=== PATIENT | female | born 1945 | race Caucasian/White ===

== ENCOUNTER 2016-12-03 11:51 | Emergency (ER) | payer OTHER, BC ==
--- NOTE | 2016-12-03 14:31 | ED NURSING NOTES ---
Clinical Report - Nurses [facility] [address] [place] [address] 12/03/2016 11:57 Patient: ROBBIE HERNANDEZ TRIAGE Triage time 13:Dec 03 2016. Acuity: LEVEL 5. Chief Complaint: NOSEBLEED. Alert. No acute distress. SEPSIS SCREEN: Sepsis Screen. Negative (no infection suspected/documented). --13:37 Prosper Farnsworth R.N. 13:31 12/03/16. BP: 132/81. HR: 66. RR: 16. O2 saturation: 97% on room air. Temp: 97.5 F. Pain level now: 0/10. --13:37 Prosper Farnsworth R.N. Weight: 68 kg stated. Height/Length: 62 inches Per Patient. BMI: 27.4. --13:30 Prosper Farnsworth R.N. Allergies Hay fever. --13:42 Prosper Farnsworth R.N. The following entry was struck by Prosper Farnsworth R.N., 13:42 (12/03/16) Reason - wrong value. <<STRICKEN ENTRY-- No Known Drug Allergy. --13:32 Prosper Farnsworth R.N. --END STRIKE>>. History Arrived by private vehicle. Historian: patient. Onset. (3 weeks ago.). ( Pt has been going to the [facility] to receive silver nitrate twice. There is a small cut in her upper nose that has been cauterized twice.). No fever, ear drainage, sore throat or sinus pain. 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 PAST MEDICAL HX: Has had prior nosebleeds (x1) (a few years ago). Immunizations: up-to-date. SURGERY HX: Cataract surgery on the right and left eye has been performed once (5 weeks ago). SOCIAL HX: Never smoker. Occasional alcohol use. No drug use. No infectious disease exposure. ABUSE ASSESSMENT: No report of abuse. FALL RISK ASSESSMENT: Fall risk assessment completed. No fall risk identified. NUTRITIONAL RISK ASSESSMENT: The nutritional risk assessment revealed no deficiencies. FUNCTIONAL ASSESSMENT: Functional assessment: no impairments noted. LEARNING NEEDS ASSESSMENT: The learning needs assessment revealed no barriers. SKIN INTEGRITY ASSESSMENT: Skin integrity risk assessment completed. No skin integrity risk identified. --13:37 Prosper Farnsworth R.N. ( Pt reports the nosebleed has been on and off for the last 3 weeks, active bleeding from the L nare this morning has since stopped since she came to the ED this morning.). --13:39 Prosper Farnsworth R.N. PROBLEMS: Fibromyalgia. --13:33 Prosper Farnsworth R.N. Interventions ID band on patient. To treatment room. --13:37 Prosper Farnsworth R.N. PHYSICAL ASSESSMENT Ambulatory to room. GENERAL / NEURO / PSYCH: Alert. Appears in no acute distress. HEENT: No facial asymmetry noted. Pupils equal, round and reactive to light. Nares within normal limits. No active nasal bleeding or dried nasal blood. RESPIRATORY: Respirations not labored. CVS: Capillary refill less than 2 seconds. SKIN: Skin is warm and dry. --13:37 Prosper Farnsworth R.N. NURSING PROGRESS NOTES The plan of care for this patient has been created. Monitoring of patient in place. Head of bed elevated. Reassurance given. Call light placed in reach. Side rails up x 1. Bed placed in lowest position. Patient ready for evaluation- chart flagged and ED physician notified. --13:38 Prosper Farnsworth R.N. 14:31 12/03/2016 LET Topical Topical Solution 1 application. Placed on a cotton ball. Allergies verified and confirmed 5 rights. --14:31 Prosper Farnsworth R.N. DISPOSITION / DISCHARGE 14:32 12/03/16. BP: 139/78. HR: 60. RR: 16. O2 saturation: 99% on room air. Temp: 97.5 F. Pain level now: 0/10. --14:33 Prosper Farnsworth R.N. Condition at departure: improved and stable. The goals identified in the patient's plan of care were met. No learning barriers present. Discharge instructions provided and reviewed with the patient. Treatments reviewed (Pt instructed to apply Vaseline to her septum PRN and to use Afrin daily for the next 48 hrs.). Patient verbalized understanding. Written instructions provided in Khmer. The patient was discharged by the physician. She was discharged home. She left the Emergency Department ambulatory and via private vehicle. Patient driving. ( Pt dc'd in stable condition, ambulatory, verbalized understanding of DC instructions. LET cottonball applied to L nare/septum prior to DC as ordered.). --14:43 Prosper Farnsworth R.N. Departure time: 14:36 Dec 03 2016. --14:43 Prosper Farnsworth R.N. Locked/Released at 12/03/2016 14:44 by Prosper Farnsworth R.N.
--- NOTE | 2016-12-03 14:31 | ED CLINICAL REPORT ---
Clinical Report - Physicians/Mid Levels [facility] [address] [place] [address] 12/03/2016 11:57 Patient: ROBBIE HERNANDEZ Time Seen: 13:16. Arrived- By private vehicle. Historian- patient. HISTORY OF PRESENT ILLNESS Chief Complaint: NOSEBLEED. Since several days ago and is now gone. Location- left nare. The patient has had epistaxis. No complaint of foreign body in the nare, nasal discharge or congestion, recent nasal injury or fainting episodes. No dizziness, sore throat or sinus pressure. Similar symptoms previously: Recent medical care: ( PT states she is from [place], and has a doctor there, but is staying at her place on [facility]. right now. She states her nosebleeds have been intermittent.). Not recently seen/assessed. REVIEW OF SYSTEMS No fever, chills, excessive bruising, bleeding from gums or headache. No visual disturbance, cough, difficulty breathing, chest pain or nausea. No vomiting, diarrhea, abdominal pain, black stools or difficulty with urination. No skin rash, bloody stools or joint pain. All systems otherwise negative, except as recorded above. PAST HISTORY Problems: Fibromyalgia. Prior Nosebleeds. Additional Surgeries: Cataract Surgery. Allergies: Hay fever. SOCIAL HISTORY Never smoker. Occasional alcohol use. No drug use. ADDITIONAL NOTES The nursing notes have been reviewed. PHYSICAL EXAM Vital Signs: 12/03/2016 13:31 BP: 132/81. HR: 66. RR: 16. O2 saturation: 97%. Temp: 97.5 F. Pain level now: 0/10. Have been reviewed. Appearance: Alert. No acute distress. Eyes: Eyes normal inspection. ENT: Ears normal. Nose: Mild left-nare mucosal inflammation (PT has a very small septal erosion, which is likely the source of the bleeding, when it does occur.). No active bleeding, dried blood or fresh clots. Throat: Pharynx normal. Neck: Normal inspection. Neck supple. CVS: Normal heart rate and rhythm. Heart sounds normal. Respiratory: No respiratory distress. Breath sounds normal. Back: Normal inspection. Skin: Skin warm and dry. Normal skin color. No rash. Normal skin turgor. Extremities: Extremities exhibit normal ROM. No lower extremity edema. Neuro: Oriented X 3. No motor deficit. No sensory deficit. LABS, X-RAYS, AND EKG Pulse Oximetry: 12/03/2016 13:31 O2 saturation: 97%. (FIO2 - room air). Interpretation: normal. PROGRESS AND PROCEDURES Course of Care: I did d/w pt options for management, including cautery with silver nitrate, packing, or vasoconstrictors. Pt opted for the latter, as she was not currently bleeding. We have discussed what to do, should the bleeding recur (pt was given nose clamps), and indications for return. Patient counseled in person regarding the patient's stable condition, diagnosis and need for follow-up. Concerns were addressed. Old medical records reviewed. Disposition: Discharged. Condition: stable. CLINICAL IMPRESSION Acute anterior, transient epistaxis INSTRUCTIONS Drink plenty of fluids. (Please use Afrin daily for the next 48 hours. You may soak a cottonball with it and put that in your left nostril for 1-2 hours, if you prefer to keep the medicine near the area of bleeding only. A couple of times per day (1-2 hours after any Afrin application), it is advisable to gently apply a bead of Vaseline, to keep the mucus membranes moist and pliable, and prevent recurrence of bleeding. If bleeding does recur, hold pressure manually or with the nose clamps for 10 minutes solid. You may also put the Afrin cottonball in and put the nose clamps over that. If this does not stop the bleeding, please come to the emergency dept.). Warnings: GENERAL WARNINGS: Return or contact your physician immediately if your condition worsens or changes unexpectedly, if not improving as expected, or if other problems arise. Understanding of the discharge instructions verbalized by patient. Follow-up with: Garrick Smith MD, ENT, , [facility] [address]; Delfino Adams MD, ENT, , [facility], [facility] [address]; Morgan Brooks MD, ENT, , [facility], [address] [place] [address], [phone]; Garrick Dooley MD, ENT, , [facility], [address] [place] [address], [phone] Follow up. Call for the next available appointment. (Electronically signed by Ching De La Paz MD 12/12/2016 21:46)
--- NOTE | 2016-12-03 14:31 | ED NURSING NOTES ---
Clinical Report - Nurses [facility] [address] [place] [address] 12/03/2016 11:57 Patient: ROBBIE HERNANDEZ TRIAGE Triage time 13:Dec 03 2016. Acuity: LEVEL 5. Chief Complaint: NOSEBLEED. Alert. No acute distress. SEPSIS SCREEN: Sepsis Screen. Negative (no infection suspected/documented). --13:37 Prosper Farnsworth R.N. 13:31 12/03/16. BP: 132/81. HR: 66. RR: 16. O2 saturation: 97% on room air. Temp: 97.5 F. Pain level now: 0/10. --13:37 Prosper Farnsworth R.N. Weight: 68 kg stated. Height/Length: 62 inches Per Patient. BMI: 27.4. --13:30 Prosper Farnsworth R.N. Allergies Hay fever. --13:42 Prosper Farnsworth R.N. The following entry was struck by Prosper Farnsworth R.N., 13:42 (12/03/16) Reason - wrong value. <<STRICKEN ENTRY-- No Known Drug Allergy. --13:32 Prosper Farnsworth R.N. --END STRIKE>>. History Arrived by private vehicle. Historian: patient. Onset. (3 weeks ago.). ( Pt has been going to the [facility] to receive silver nitrate twice. There is a small cut in her upper nose that has been cauterized twice.). No fever, ear drainage, sore throat or sinus pain. 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 PAST MEDICAL HX: Has had prior nosebleeds (x1) (a few years ago). Immunizations: up-to-date. SURGERY HX: Cataract surgery on the right and left eye has been performed once (5 weeks ago). SOCIAL HX: Never smoker. Occasional alcohol use. No drug use. No infectious disease exposure. ABUSE ASSESSMENT: No report of abuse. FALL RISK ASSESSMENT: Fall risk assessment completed. No fall risk identified. NUTRITIONAL RISK ASSESSMENT: The nutritional risk assessment revealed no deficiencies. FUNCTIONAL ASSESSMENT: Functional assessment: no impairments noted. LEARNING NEEDS ASSESSMENT: The learning needs assessment revealed no barriers. SKIN INTEGRITY ASSESSMENT: Skin integrity risk assessment completed. No skin integrity risk identified. --13:37 Prosper Farnsworth R.N. ( Pt reports the nosebleed has been on and off for the last 3 weeks, active bleeding from the L nare this morning has since stopped since she came to the ED this morning.). --13:39 Prosper Farnsworth R.N. PROBLEMS: Fibromyalgia. --13:33 Prosper Farnsworth R.N. Interventions ID band on patient. To treatment room. --13:37 Prosper Farnsworth R.N. PHYSICAL ASSESSMENT Ambulatory to room. GENERAL / NEURO / PSYCH: Alert. Appears in no acute distress. HEENT: No facial asymmetry noted. Pupils equal, round and reactive to light. Nares within normal limits. No active nasal bleeding or dried nasal blood. RESPIRATORY: Respirations not labored. CVS: Capillary refill less than 2 seconds. SKIN: Skin is warm and dry. --13:37 Prosper Farnsworth R.N. NURSING PROGRESS NOTES The plan of care for this patient has been created. Monitoring of patient in place. Head of bed elevated. Reassurance given. Call light placed in reach. Side rails up x 1. Bed placed in lowest position. Patient ready for evaluation- chart flagged and ED physician notified. --13:38 Prosper Farnsworth R.N. 14:31 12/03/2016 LET Topical Topical Solution 1 application. Placed on a cotton ball. Allergies verified and confirmed 5 rights. --14:31 Prosper Farnsworth R.N. DISPOSITION / DISCHARGE 14:32 12/03/16. BP: 139/78. HR: 60. RR: 16. O2 saturation: 99% on room air. Temp: 97.5 F. Pain level now: 0/10. --14:33 Prosper Farnsworth R.N. Condition at departure: improved and stable. The goals identified in the patient's plan of care were met. No learning barriers present. Discharge instructions provided and reviewed with the patient. Treatments reviewed (Pt instructed to apply Vaseline to her septum PRN and to use Afrin daily for the next 48 hrs.). Patient verbalized understanding. Written instructions provided in Setswana. The patient was discharged by the physician. She was discharged home. She left the Emergency Department ambulatory and via private vehicle. Patient driving. ( Pt dc'd in stable condition, ambulatory, verbalized understanding of DC instructions. LET cottonball applied to L nare/septum prior to DC as ordered.). --14:43 Prosper Farnsworth R.N. Departure time: 14:36 Dec 03 2016. --14:43 Prosper Farnsworth R.N. Locked/Released at 12/03/2016 14:44 by Prosper Farnsworth R.N.
--- NOTE | 2016-12-03 14:31 | ED CLINICAL REPORT ---
Clinical Report - Physicians/Mid Levels [facility] [address] [place] [address] 12/03/2016 11:57 Patient: ROBBIE HERNANDEZ Time Seen: 13:16. Arrived- By private vehicle. Historian- patient. HISTORY OF PRESENT ILLNESS Chief Complaint: NOSEBLEED. Since several days ago and is now gone. Location- left nare. The patient has had epistaxis. No complaint of foreign body in the nare, nasal discharge or congestion, recent nasal injury or fainting episodes. No dizziness, sore throat or sinus pressure. Similar symptoms previously: Recent medical care: ( PT states she is from [place], and has a doctor there, but is staying at her place on [facility]. right now. She states her nosebleeds have been intermittent.). Not recently seen/assessed. REVIEW OF SYSTEMS No fever, chills, excessive bruising, bleeding from gums or headache. No visual disturbance, cough, difficulty breathing, chest pain or nausea. No vomiting, diarrhea, abdominal pain, black stools or difficulty with urination. No skin rash, bloody stools or joint pain. All systems otherwise negative, except as recorded above. PAST HISTORY Problems: Fibromyalgia. Prior Nosebleeds. Additional Surgeries: Cataract Surgery. Allergies: Hay fever. SOCIAL HISTORY Never smoker. Occasional alcohol use. No drug use. ADDITIONAL NOTES The nursing notes have been reviewed. PHYSICAL EXAM Vital Signs: 12/03/2016 13:31 BP: 132/81. HR: 66. RR: 16. O2 saturation: 97%. Temp: 97.5 F. Pain level now: 0/10. Have been reviewed. Appearance: Alert. No acute distress. Eyes: Eyes normal inspection. ENT: Ears normal. Nose: Mild left-nare mucosal inflammation (PT has a very small septal erosion, which is likely the source of the bleeding, when it does occur.). No active bleeding, dried blood or fresh clots. Throat: Pharynx normal. Neck: Normal inspection. Neck supple. CVS: Normal heart rate and rhythm. Heart sounds normal. Respiratory: No respiratory distress. Breath sounds normal. Back: Normal inspection. Skin: Skin warm and dry. Normal skin color. No rash. Normal skin turgor. Extremities: Extremities exhibit normal ROM. No lower extremity edema. Neuro: Oriented X 3. No motor deficit. No sensory deficit. LABS, X-RAYS, AND EKG Pulse Oximetry: 12/03/2016 13:31 O2 saturation: 97%. (FIO2 - room air). Interpretation: normal. PROGRESS AND PROCEDURES Course of Care: I did d/w pt options for management, including cautery with silver nitrate, packing, or vasoconstrictors. Pt opted for the latter, as she was not currently bleeding. We have discussed what to do, should the bleeding recur (pt was given nose clamps), and indications for return. Patient counseled in person regarding the patient's stable condition, diagnosis and need for follow-up. Concerns were addressed. Old medical records reviewed. Disposition: Discharged. Condition: stable. CLINICAL IMPRESSION Acute anterior, transient epistaxis INSTRUCTIONS Drink plenty of fluids. (Please use Afrin daily for the next 48 hours. You may soak a cottonball with it and put that in your left nostril for 1-2 hours, if you prefer to keep the medicine near the area of bleeding only. A couple of times per day (1-2 hours after any Afrin application), it is advisable to gently apply a bead of Vaseline, to keep the mucus membranes moist and pliable, and prevent recurrence of bleeding. If bleeding does recur, hold pressure manually or with the nose clamps for 10 minutes solid. You may also put the Afrin cottonball in and put the nose clamps over that. If this does not stop the bleeding, please come to the emergency dept.). Warnings: GENERAL WARNINGS: Return or contact your physician immediately if your condition worsens or changes unexpectedly, if not improving as expected, or if other problems arise. Understanding of the discharge instructions verbalized by patient. Follow-up with: Garrick Smith MD, ENT, , [facility] [address]; Delfino Adams MD, ENT, , [facility], [facility] [address]; Morgan Brooks MD, ENT, , [facility], [address] [place] [address], [phone]; Garrick Dooley MD, ENT, , [facility], [address] [place] [address], [phone] Follow up. Call for the next available appointment. (Electronically signed by Ching De La Paz MD 12/12/2016 21:46)
--- NOTE | 2016-12-12 21:47 | ED ORDER SUMMARY ---
..... Patient: ROBBIE HERNANDEZ OrderSheet [facility] VisitID: [id number] [address] [place] [address] 71y, F Registration Date/Time: 12/03/2016 ORDER SHEET Weight: 68.0 kg (stated) Allergies: Hay fever GENERAL ORDERS: MEDICATION ORDERS: LET Topical 1 application (cottonball to L nare) (14:31 12/03/2016 Mak RUIZ) (14:31 Jammie VickersNHoracio) IV FLUIDS: ORDER SHEET NOTES: [Electronically signed by Prosper Farnsworth R.N. (14:44 12/03/2016)] [Electronically signed by Ching De La Paz MD (21:46 12/12/2016)] [Electronically locked/signed by Prosper Farnsworth R.N. (14:44 12/03/2016)]
--- NOTE | 2016-12-12 21:47 | ED DISCHARGE INSTRUCTIONS ---
Patient: ROBBIE HERNANDEZ General Instructions [facility] VisitID: [id number] [address] [place] [address] 71y, F Registration Date/Time: 12/03/2016 Acute anterior, transient epistaxis INSTRUCTIONS Drink plenty of fluids. (Please use Afrin daily for the next 48 hours. You may soak a cottonball with it and put that in your left nostril for 1-2 hours, if you prefer to keep the medicine near the area of bleeding only. A couple of times per day (1-2 hours after any Afrin application), it is advisable to gently apply a bead of Vaseline, to keep the mucus membranes moist and pliable, and prevent recurrence of bleeding. If bleeding does recur, hold pressure manually or with the nose clamps for 10 minutes solid. You may also put the Afrin cottonball in and put the nose clamps over that. If this does not stop the bleeding, please come to the emergency dept.). Warnings: GENERAL WARNINGS: Return or contact your physician immediately if your condition worsens or changes unexpectedly, if not improving as expected, or if other problems arise. Understanding of the discharge instructions verbalized by patient. Follow-up with: Garrick Smith MD, ENT, , [facility] [place] [address]; Delfino Adams MD, ENT, , [place] [address]; Morgan Brooks MD, ENT, , [place] [address]; Garrick Dooley MD, ENT, , [place] [address] Follow up. Call for the next available appointment. ADDITIONAL INFORMATION Nosebleed [Adult] Bleeding from the nose most commonly occurs due to injury or drying and cracking of the inner lining of the nose. This can occur during a "common cold," "hay fever" attack, a very hot day, or from dry air in the winter. High blood pressure and hardening of the arteries (atherosclerosis) may also cause nosebleeds. If the bleeding site is found, it may be treated with a chemical or heat or electricity to cause a blood clot to form (cauterized). If the bleeding continues after cautery or if the bleeding site cannot be found, a packing may be placed in your nose to apply pressure and stop the bleeding. The packing may be made of gauze or sponge. A small balloon catheter is sometimes used. These need to be removed by your doctor. Some types of packing dissolve on their own. Home Care: If a packing was put in your nose, unless told otherwise, do not pull on it or try to remove it yourself. You will be given an appointment to have it removed. You may also have been given antibiotics to prevent a sinus infection. If so, complete all the medicine. Do not blow your nose for 12 hours after the bleeding stops. This will allow a strong blood clot to form. Do not pick your nose. This may restart bleeding. Avoid alcohol and hot liquids for the next two days. Alcohol or hot liquids in your mouth can dilate blood vessels in your nose and cause bleeding to start again. Do not take ibuprofen (Advil, Motrin), naprosyn (Aleve) or aspirin-containing medicines since these thin the blood and may promote nose bleeding. You may take Tylenol (acetaminophen) for pain, unless another pain medicine was prescribed. If the bleeding starts again, sit up and lean forward to prevent swallowing blood. Pinch your nose tightly for exactly 5 minutes (watch the clock). If bleeding is not controlled, continue to pinch and call your doctor or return to this facility. If high blood pressure was a cause for your nosebleed, have your blood pressure checked again tomorrow. If you have a "cold" or "hay fever" or dry nasal membranes, lubricate the nasal passages by applying a small amount of Vaseline inside the nose with a Q-tip twice a day (morning and night). Avoid overheating your home, which can dry the air and worsen your condition. Follow Up with your doctor as advised for packing removal. Nasal packing should be rechecked or removed within 2-3 days. Get Prompt Medical Attention if any of the following occur: Another nosebleed that you cannot control Dizziness, weakness or fainting Fever of 100.4F (38C) or higher, or as directed by your healthcare provider Headache Sinus or facial pain Shortness of breath or trouble breathing You have been given the following additional information: Epistaxis (Adult) (Electronically signed by Ching De La Paz MD 12/12/2016 21:46)
--- NOTE | 2016-12-12 21:47 | ED DISCHARGE INSTRUCTIONS ---
Patient: ROBBIE HERNANDEZ General Instructions [facility] VisitID: [id number] [address] [place] [address] 71y, F Registration Date/Time: 12/03/2016 Acute anterior, transient epistaxis INSTRUCTIONS Drink plenty of fluids. (Please use Afrin daily for the next 48 hours. You may soak a cottonball with it and put that in your left nostril for 1-2 hours, if you prefer to keep the medicine near the area of bleeding only. A couple of times per day (1-2 hours after any Afrin application), it is advisable to gently apply a bead of Vaseline, to keep the mucus membranes moist and pliable, and prevent recurrence of bleeding. If bleeding does recur, hold pressure manually or with the nose clamps for 10 minutes solid. You may also put the Afrin cottonball in and put the nose clamps over that. If this does not stop the bleeding, please come to the emergency dept.). Warnings: GENERAL WARNINGS: Return or contact your physician immediately if your condition worsens or changes unexpectedly, if not improving as expected, or if other problems arise. Understanding of the discharge instructions verbalized by patient. Follow-up with: Garrick Smith MD, E[facility], , [facility] [place] [address]; Delfino Adams MD, ENT, , [place] [address]; Morgan Brooks MD, ENT, , [place] [address]; Garrick Dooley MD, ENT, , [place] [address] Follow up. Call for the next available appointment. ADDITIONAL INFORMATION Nosebleed [Adult] Bleeding from the nose most commonly occurs due to injury or drying and cracking of the inner lining of the nose. This can occur during a "common cold," "hay fever" attack, a very hot day, or from dry air in the winter. High blood pressure and hardening of the arteries (atherosclerosis) may also cause nosebleeds. If the bleeding site is found, it may be treated with a chemical or heat or electricity to cause a blood clot to form (cauterized). If the bleeding continues after cautery or if the bleeding site cannot be found, a packing may be placed in your nose to apply pressure and stop the bleeding. The packing may be made of gauze or sponge. A small balloon catheter is sometimes used. These need to be removed by your doctor. Some types of packing dissolve on their own. Home Care: If a packing was put in your nose, unless told otherwise, do not pull on it or try to remove it yourself. You will be given an appointment to have it removed. You may also have been given antibiotics to prevent a sinus infection. If so, complete all the medicine. Do not blow your nose for 12 hours after the bleeding stops. This will allow a strong blood clot to form. Do not pick your nose. This may restart bleeding. Avoid alcohol and hot liquids for the next two days. Alcohol or hot liquids in your mouth can dilate blood vessels in your nose and cause bleeding to start again. Do not take ibuprofen (Advil, Motrin), naprosyn (Aleve) or aspirin-containing medicines since these thin the blood and may promote nose bleeding. You may take Tylenol (acetaminophen) for pain, unless another pain medicine was prescribed. If the bleeding starts again, sit up and lean forward to prevent swallowing blood. Pinch your nose tightly for exactly 5 minutes (watch the clock). If bleeding is not controlled, continue to pinch and call your doctor or return to this facility. If high blood pressure was a cause for your nosebleed, have your blood pressure checked again tomorrow. If you have a "cold" or "hay fever" or dry nasal membranes, lubricate the nasal passages by applying a small amount of Vaseline inside the nose with a Q-tip twice a day (morning and night). Avoid overheating your home, which can dry the air and worsen your condition. Follow Up with your doctor as advised for packing removal. Nasal packing should be rechecked or removed within 2-3 days. Get Prompt Medical Attention if any of the following occur: Another nosebleed that you cannot control Dizziness, weakness or fainting Fever of 100.4F (38C) or higher, or as directed by your healthcare provider Headache Sinus or facial pain Shortness of breath or trouble breathing You have been given the following additional information: Epistaxis (Adult) (Electronically signed by Ching De La Paz MD 12/12/2016 21:46)
--- NOTE | 2016-12-12 21:47 | ED ORDER SUMMARY ---
..... Patient: ROBBIE HERNANDEZ OrderSheet [facility] VisitID: [id number] [address] [place] [address] 71y, F Registration Date/Time: 12/03/2016 ORDER SHEET Weight: 68.0 kg (stated) Allergies: Hay fever GENERAL ORDERS: MEDICATION ORDERS: LET Topical 1 application (cottonball to L nare) (14:31 12/03/2016 Mak RUIZ) (14:31 Jammie VickersNHoracio) IV FLUIDS: ORDER SHEET NOTES: [Electronically signed by Prosper Farnsworth R.N. (14:44 12/03/2016)] [Electronically signed by Ching De La Paz MD (21:46 12/12/2016)] [Electronically locked/signed by Prosper Farnsworth R.N. (14:44 12/03/2016)]
--- NOTE | 2016-12-12 21:47 | ED MED RECONCILIATION SUMMARY ---
Patient: ROBBIE HERNANDEZ Medication Reconciliation Report [facility] VisitID: [id number] [address] [place] [address] 71y, F Registration Date/Time: 12/03/2016 Weight: 68.0 kg Height/Length: 62 in. BMI: 27.4 ALLERGIES: Hay fever The patient's Home Medications are listed below: Not obtained. The source(s) of the original Home Medication information: Not obtained. The following Medications were given to the patient in the Emergency Department: LET [Topical] Topical 1 application, administered: 12/03/2016 2:31:00 PM The following Medications were prescribed to the patient: None.
--- NOTE | 2016-12-12 21:47 | ED MAR SUMMARY ---
..... Medication Administration Record [facility] [address] [place] [address] Patient: ROBBIE HERNANDEZ Visit ID: [id number] 71y, F Weight: 68.0 kg Height/Length: 62 in BMI: 27.4 ALLERGIES: Hay fever Given 14:31 12/03/2016 Prosper Farnsworth R.N. Medication Administered: LET [TOPICAL], Dose: 1 application Topical Solution Topical. Medication Ordered: LET Topical 1 application (cottonball to L nare).
--- NOTE | 2016-12-12 21:47 | ED MED RECONCILIATION SUMMARY ---
Patient: ROBBIE HERNANDEZ Medication Reconciliation Report [facility] VisitID: [id number] [address] [place] [address] 71y, F Registration Date/Time: 12/03/2016 Weight: 68.0 kg Height/Length: 62 in. BMI: 27.4 ALLERGIES: Hay fever The patient's Home Medications are listed below: Not obtained. The source(s) of the original Home Medication information: Not obtained. The following Medications were given to the patient in the Emergency Department: LET [Topical] Topical 1 application, administered: 12/03/2016 2:31:00 PM The following Medications were prescribed to the patient: None.
--- NOTE | 2016-12-12 21:47 | ED MAR SUMMARY ---
..... Medication Administration Record [facility] [address] [place] [address] Patient: ROBBIE HERNANDEZ Visit ID: [id number] 71y, F Weight: 68.0 kg Height/Length: 62 in BMI: 27.4 ALLERGIES: Hay fever Given 14:31 12/03/2016 Prosper Farnsowrth R.N. Medication Administered: LET [TOPICAL], Dose: 1 application Topical Solution Topical. Medication Ordered: LET Topical 1 application (cottonball to L nare).
== END 2016-12-03 14:36 | disposition home or self-care (01) ==
LOC: ED SRH 11:51
DX: R04.0 Epistaxis (principal); Z91.09 Other allergy status, other than to drugs and biological substances